=== PATIENT | female | born 1980 | race African-American/Black ===

== ENCOUNTER 2023-12-19 07:15 | Emergency (ER) | payer SELFPAY ==
[~2023-12-19] VITALS: Ht 165.1 cm; Wt 79.0 kg
[2023-12-19 07:35] VITALS: BP 167/98; PULSE 71; RESP 18; TEMP 98.4; O2SAT 99
== END 2023-12-19 10:02 ==
LOC: ER 07:15
DX: T19.2XXA Foreign body in vulva and vagina, initial encounter (principal); E03.9 Hypothyroidism, unspecified; Z98.890 Other specified postprocedural states; X58.XXXA Exposure to other specified factors, initial encounter; Y93.89 Activity, other specified; Y92.89 Other specified places as the place of occurrence of the external cause; Y99.8 Other external cause status
CPT/HCPCS: 99284